=== PATIENT | male | born 1985 | race Caucasian/White ===

== ENCOUNTER 2016-09-22 12:04 | Emergency (ER) | payer SELFPAY ==
[~2016-09-22] VITALS: Ht 188 cm; Wt 131.8 kg
[~2016-09-22 12:04] MED LIST: CLON.5 PO; DEPA125T PO; DIVA500 PO; MIRT7.5T10 PO; MIRTA15 PO; QUET100 PO; QUET25 PO; TRAZ50TA4 PO
[2016-09-22 12:05] VITALS: BP 146/93; PULSE 113; RESP 15; TEMP 98; O2SAT 99
--- NOTE | 2016-09-22 14:05 | PD ---
HPI Chief Complaint: Edema Time Seen by Provider: 14:05 Travel History International Travel<30 days: No Contact w/Intl Traveler<30days: No Traveled to known affect area: No History of Present Illness HPI 31-year-old male presents emergency Department with complaint of left foot second and third toe swelling and pain since yesterday morning when he woke up. Denies known injury. Says that he has been told he has gout but has never had an exacerbation. Pain is aggravated with palpation, walking, movement of the foot. Denies paresthesias, loss of sensation, decreased range of motion, decreased strength to the affected extremity. Denies fever, chills, nausea, vomiting. Took ibuprofen earlier this morning with good relief of pain. Has not tried any other treatments to alleviate his symptoms. Allergies to BuSpar. Denies significant medical history. Reports being up-to-date on his tetanus vaccination. No other modifying factors or associated signs and symptoms. PFSH Past Medical History ADD: Yes Bipolar Disorder: Yes Diminished Hearing: No Hepatitis: Yes (HEP C) Psychiatric: Yes (PTSD) Past Surgical History Other Surgery: Yes (COLONOSCOPY, JAW SX) Social History Alcohol Use: Yes Tobacco Use: No Substance Use: No (OLD HX) Allergies-Medications (Allergen,Severity, Reaction): Coded Allergies: Abilify (Verified Allergy, Severe, 09/22/16) Buspar (Verified Adverse Reaction, Severe, Restlessness, 09/22/16) Reported Meds & Prescriptions Reported Meds & Active Scripts Active Reported Neurontin (Gabapentin) 300 Mg Cap 300 Mg PO TID Zyprexa (Olanzapine) 10 Mg Tab 10 Mg PO DAILY Prozac (Fluoxetine HCl) 10 Mg Cap 10 Mg PO DAILY Vistaril (Hydroxyzine Pamoate) 50 Mg Cap 50 Mg PO BID Review of Systems Except as stated in HPI: all other systems reviewed are Neg Physical Exam Narrative GENERAL: Well-nourished, well-developed male patient, in no acute distress; afebrile, nontoxic-appearing SKIN: Warm and dry. HEAD: Atraumatic. Normocephalic. EYES: Pupils equal and round. No scleral icterus. No injection or drainage. ENT: Mucosa pink and moist. Airway patent. NECK: Trachea midline. CARDIOVASCULAR: Regular rate. RESPIRATORY: No accessory muscle use. GASTROINTESTINAL: Obese. MUSCULOSKELETAL: Left foot just below the second and third toes with a small area of erythema that is warm to touch; second and third toes are mildly edematous and without erythema or edema; with sensory intact; with full range of motion. Left lower extremity is supple and nontender to posterior pulses and sensory intact without erythema or edema. I don't feel findings are consistent with gout exacerbation. No obvious deformities. No clubbing. No cyanosis. No edema. NEUROLOGICAL: Awake and alert. Oriented 3. No obvious cranial nerve deficits. Motor grossly within normal limits. Normal speech. PSYCHIATRIC: Appropriate mood and affect; insight and judgment normal. Data Data Last Documented VS Vital Signs Date Time Temp Pulse Resp B/P Pulse Ox O2 Delivery O2 Flow Rate FiO2 09/22/16 12:05 98.0 113 15 146/93 99 Orders Foot, Complete ([id number]) (09/22/16 14:05) Ibuprofen (Motrin) (09/22/16 14:15) [facility] Medical Decision Making Medical Screen Exam Complete: Yes Emergency Medical Condition: Yes Medical Record Reviewed: Yes Differential Diagnosis Cellulitis, gout, contusion Narrative Course 31-year-old male with a stated history of gout without exacerbation with a small area of erythema to the left foot just below the second and third toes. The areas with warmth to touch. Suspecting a cellulitis. Patient is afebrile. He denies fever, chills, nausea, vomiting. Heart rate recheck on physical exam is approximately 90 bpm. Ibuprofen administered in the ER. Left foot x- ray ordered to rule out fracture, dislocation. 1450: Left foot x-ray concludes soft tissue swelling without fracture. Will treat the patient for suspected cellulitis. Crutches provided for support. Ibuprofen, Keflex and Bactrim prescribed for home. Patient is medically cleared and stable for discharge. Discussed reasons to return to the emergency department. Instructed patient to follow up with primary care provider. Patient agrees with treatment plan. The patients vital signs are stable and the patient is stable for outpatient follow-up and treatment. Patient discharged home, stable and in no acute distress. Diagnosis Primary Impression: Cellulitis of left foot Referrals: Primary Care Physician Patient Instructions: Cellulitis (ED), General Instructions Additional Instructions: Tylenol/ibuprofen every 6 hours as directed and as needed for pain Rest, ice, compress, and elevate extremity to decrease pain and inflammation Brace for support Crutches for support Avoid aggravating activity; increase activity as tolerated Follow-up with primary care provider Return to the emergency department immediately with worsening symptoms, particularly if loss of sensation or numbness/tingling in the affected extremity , swelling or redness to the affected extremity, development of fever Med/Other Pt SpecificInfo: Prescription(s) given Scripts Ibuprofen 800 Mg [id number] Mg PO Q6HR PRN (PAIN) #30 TAB Ref 0 Prov:Abby Mclaughlin 09/22/16 Cephalexin (Keflex)500 Mg [id number] Mg PO Q6H 10 Days Ref 0 Prov:Abby Mclaughlin 09/22/16 Sulfamethoxazole-Trimethoprim (Bactrim DS)800-160 Mg Tab1 Tab PO BID 10 Days Ref 0 Prov:Abby Mclaughlin 09/22/16 Disposition: 01 DISCHARGE HOME Condition: Stable Abby Mclaughlin Sep 22, 2016 14:05
[2016-09-22] MEDS ORDERED: IBUPROFEN 800 MG TAB PO ONE (14:15)
--- NOTE | 2016-09-22 14:23 | RADRPT ---
EXAM DATE/TIME: 09/22/2016 14:21 [facility] COMPARISON: No previous studies available for comparison. INDICATIONS : Left foot pain with no known injury. MEDICAL HISTORY : None. SURGICAL HISTORY : None. ENCOUNTER: Initial ACUITY: 2 days PAIN SCORE: 7/10 LOCATION: Left 2nd 3rd digit. FINDINGS: Three view examination of the left foot demonstrates soft tissue swelling without dislocation or frac ture. The tarsal bones appear intact. The interphalangeal and metatarsophalangeal joints are intac t. The calcaneus is intact. Bony mineralization is normal. CONCLUSION: Soft tissue swelling without fracture. Anjum You MD on September 22, 2016 at 14:21 Board Certified Radiologist. This report was verified electronically.
[2016-09-22] MEDS ORDERED: VIST50CA PO (14:34)
[2016-09-22] MEDS ORDERED: ZYPR10TA PO (14:34)
[2016-09-22] MEDS ORDERED: NEUR300C PO (14:34)
[2016-09-22] MEDS ORDERED: FLUO-1 PO (14:34)
[2016-09-22] MEDS ORDERED: BACT800T5 PO (14:51)
[2016-09-22] MEDS ORDERED: IBUP800T23 PO (14:51)
[2016-09-22] MEDS ORDERED: CEPH-460 PO (14:51)
== END 2016-09-22 15:26 | disposition home or self-care (01) ==
LOC: NEPB 12:04
DX: M79.675 Pain in left toe(s) (principal); L03.116 Cellulitis of left lower limb; B19.20 Unspecified viral hepatitis C without hepatic coma; M10.9 Gout, unspecified
CPT/HCPCS: 73630; 99283; E0113

== ENCOUNTER 2017-08-24 18:42 | Emergency (ER) | payer SELFPAY ==
[~2017-08-24 18:42] MED LIST changes: +BACT800T5 PO; +CEPH-460 PO; -CLON.5 PO; -DEPA125T PO; -DIVA500 PO; +FLUO-1 PO; +IBUP1TAB7 PO; -MIRT7.5T10 PO; -MIRTA15 PO; +NEUR300C PO; -QUET100 PO; -QUET25 PO; -TRAZ50TA4 PO; +VIST50CA PO; +ZYPR10TA PO
[2017-08-24 18:44] VITALS: BP 138/94; PULSE 104; RESP 16; TEMP 98.4; O2SAT 96
--- NOTE | 2017-08-24 20:40 | PD ---
HPI Chief Complaint: Lump, Cyst, Hernia Time Seen by Provider: 20:37 Travel History International Travel<30 days: No Contact w/Intl Traveler<30days: No Traveled to known affect area: No History of Present Illness HPI 32-year-old male presents to the ED for evaluation 3 day history of painful, reddened bump of the left anterior neck. Patient states that the area started out like a pimple. He states that he scraped the roof of the area off and attempted to squeeze. He states that the pain and swelling has gotten worse. He denies fever, chills, nausea, vomiting, difficulties opening and closing his mouth, difficulties with breathing. He treated at home this morning with a dose of penicillin and ibuprofen with no improvement of symptoms. He denies history of MRSA. [facility] Past Medical History ADD: Yes Bipolar Disorder: Yes Diminished Hearing: No Hepatitis: Yes (HEP C) Psychiatric: Yes (PTSD) Past Surgical History Other Surgery: Yes (COLONOSCOPY, JAW SX) Social History Alcohol Use: Yes Tobacco Use: No Substance Use: No (OLD HX) Allergies-Medications (Allergen,Severity, Reaction): Coded Allergies: aripiprazole (Unverified Allergy, Severe, 05/02/17) buspirone (Unverified Adverse Reaction, Severe, Restlessness, 05/02/17) Reported Meds & Prescriptions Reported Meds & Active Scripts Active Ibuprofen 800 Mg Tab 800 Mg PO Q6HR PRN Reported Neurontin (Gabapentin) 300 Mg Cap 300 Mg PO TID Prozac (Fluoxetine HCl) 10 Mg Cap 10 Mg PO DAILY Vistaril (Hydroxyzine Pamoate) 50 Mg Cap 50 Mg PO BID Review of Systems Except as stated in HPI: all other systems reviewed are Neg Physical Exam Narrative GENERAL: Well-nourished, well-developed obese white male in no acute distress. SKIN: Focused skin assessment warm/dry. There is an indurated area in the left submandibular area which measures about 2 cm in diameter. It is fluctuant but there is no pointing or drainage. There is a zone of inflammation around it but no lymphangitis. HEAD: Normocephalic. EYES: No scleral icterus. No injection or drainage. NECK: Supple, trachea midline. No JVD or lymphadenopathy. CARDIOVASCULAR: Regular rate and rhythm without murmurs, gallops, or rubs. RESPIRATORY: Breath sounds equal bilaterally. No accessory muscle use. GASTROINTESTINAL: Abdomen soft, non-tender, nondistended. MUSCULOSKELETAL: No cyanosis, or edema. BACK: Nontender without obvious deformity. No CVA tenderness. Data Data Last Documented VS Vital Signs Date Time Temp Pulse Resp B/P (MAP) Pulse Ox O2 Delivery O2 Flow Rate FiO2 08/24/17 21:30 98 136/88 (104) 97 08/24/17 18:44 98.4 16 Room Air Orders Orders Sulfamet-Trimeth Ds 800-160 Mg (Bactrim (08/24/17 20:45) Cephalexin (Keflex) (08/24/17 20:45) Ibuprofen (Motrin) (08/24/17 20:45) Abscess Culture And Gram Stain (08/24/17 20:40) Lidocaine 1% Inj (50 Ml) (Xylocaine 1% I (08/24/17 20:45) Ed Discharge Order (08/24/17 21:26) [facility] Medical Decision Making Medical Screen Exam Complete: Yes Emergency Medical Condition: Yes Differential Diagnosis Folliculitis versus abscess versus cellulitis versus other Narrative Course 32-year-old male presents to the ED for evaluation 3 day history of painful, reddened bump of the left anterior neck. Patient states that the area started out like a pimple. He states that he scraped the roof of the area off and attempted to squeeze. He states that the pain and swelling has gotten worse. He denies fever, chills, nausea, vomiting, difficulties opening and closing his mouth, difficulties with breathing. He denies history of MRSA. Vitals reviewed. Physical exam consistent with abscess. I&D was performed. Please see my procedure note for details. Patient was prescribed Bactrim, Keflex, ibuprofen. First doses were administered in the ED. Patient was instructed to keep the wound clean and covered, return to the ED in 2 days for wound evaluation and packing removal. He indicated understanding of the instructions and is agreeable to the care plan. He is stable and discharged home. Procedures Procedure Narrative INCISION AND DRAINAGE OF ABSCESS: The area was prepped and was sterilely draped. A subcutaneous wheal of 1 % Xylocaine with a total number 2 mL mL was used to anesthetize the area properly. A number 11 scalpel was used to make a 1.25-cm incision across the area of the abscess. The abscess was drained , complex loculations were broken down, and irrigated with normal saline. Cultures were obtained. Quarter inch iodoform packing was placed in the wound. Sterile dressing applied. Patient advised to have packing removed in two days. Diagnosis Primary Impression: Abscess of face Referrals: Primary Care Physician Patient Instructions: Abscess Incision and Drainage (DC), General Instructions Additional Instructions: Rest, hydrate. Do not remove the dressing. Take the antibiotics as they are prescribed, even if your symptoms resolve. Take ibuprofen as prescribed, as needed for pain.. Return to the ED in 2 days for packing removal and wound evaluation. Return to the ED for any urgent or emergent medical condition. Med/Other Pt SpecificInfo: Prescription(s) given Disposition: 01 DISCHARGE HOME Condition: Stable Mallory Momin Aug 24, 2017 20:40
[2017-08-24] MEDS ORDERED: IBUPROFEN 800 MG TAB PO ONE (20:45)
[2017-08-24] MEDS ORDERED: CEPHALEXIN MONOHYDRATE 500 MG CAP PO ONE (20:45)
[2017-08-24] MEDS ORDERED: SULFAMETHOXAZOLE-TRIMETHOPRIM DS 800-160 MG TAB PO ONE (20:45)
[2017-08-24] MEDS ORDERED: LIDOCAINE HCL 1% 50 ML VIAL INFIL ONE (20:45)
[2017-08-24 21:30] VITALS: BP 136/88
[2017-08-24] MEDS ORDERED: CEPH-460 PO (22:09)
[2017-08-24] MEDS ORDERED: BACT800T5 PO (22:09)
[2017-08-24] MEDS ORDERED: IBUP1TAB7 PO (22:09)
== END 2017-08-24 22:15 | disposition home or self-care (01) ==
LOC: NEPC 18:42
DX: L02.11 Cutaneous abscess of neck (principal); B95.62 Methicillin resistant Staphylococcus aureus infection as the cause of diseases classified elsewhere; F31.9 Bipolar disorder, unspecified; F43.10 Post-traumatic stress disorder, unspecified; Z86.19 Personal history of other infectious and parasitic diseases; Z72.89 Other problems related to lifestyle
CPT/HCPCS: 10061; 86403; 87070; 87186; 87205